=== PATIENT | male | born 1985 | race Two or more races ===

== ENCOUNTER 2022-10-02 07:41 | Emergency (ER) | payer OTHER ==
[~2022-10-02] VITALS: Ht 177.8 cm; Wt 81.8 kg
[2022-10-02 07:44] VITALS: TEMP 99.2
[2022-10-02] MEDS ORDERED: ACETAMINOPHEN 500 MG TABLET PO ONE (08:00)
[2022-10-02] MEDS ORDERED: ONDANSETRON HCL 4 MG TABLET PO ONE (08:00)
[2022-10-02] MEDS ORDERED: DIPHENOXYLATE/ATROP 2.5-0.025 MG TABLET PO ONE (08:00)
[2022-10-02 08:35] VITALS: BP 136/91; PULSE 86; RESP 18
[2022-10-02] MEDS ORDERED: ONDA-104 PO (08:40)
[2022-10-02] MEDS ORDERED: ACET-66 PO (08:40)
[2022-10-02] MEDS ORDERED: DIPH-654 PO (08:40)
== END 2022-10-02 08:57 | disposition home or self-care (01) ==
LOC: EMS 07:46
DX: K52.9 Noninfective gastroenteritis and colitis, unspecified (principal); A08.8 Other specified intestinal infections; F17.210 Nicotine dependence, cigarettes, uncomplicated; F10.90 Alcohol use, unspecified, uncomplicated; F15.90 Other stimulant use, unspecified, uncomplicated
CPT/HCPCS: 99284; Q0162